=== PATIENT | female | born 1980 | race Caucasian/White ===

== ENCOUNTER 2017-10-15 20:19 | Emergency (ER) | payer OTHER ==
[~2017-10-15] VITALS: Ht 165.1 cm; Wt 65.8 kg
--- NOTE | 2017-10-15 21:15 | NUR ---
PT OK TO DISCHARGE HOME
== END 2017-10-15 21:34 | disposition home or self-care (01) ==
LOC: ER 20:25
DX: O9A.213 Injury, poisoning and certain other consequences of external causes complicating pregnancy, third trimester (principal); S09.8XXA Other specified injuries of head, initial encounter; S80.212A Abrasion, left knee, initial encounter; Z3A.36 36 weeks gestation of pregnancy; W18.09XA Striking against other object with subsequent fall, initial encounter; Y93.89 Activity, other specified; Y92.89 Other specified places as the place of occurrence of the external cause; Y99.8 Other external cause status
CPT/HCPCS: 99283; A4606; Z7610